=== PATIENT | male | born 1940 | race Caucasian/White ===

== ENCOUNTER 2024-01-18 10:16 | Inpatient (IN) | payer OTHER, MEDICARE ==
[2024-01-18 10:58] VITALS: BMI 21.5
[2024-01-18 11:32] LABS: HEMATOCRIT 25.8 % (35.4-49); HEMOGLOBIN 8.4 GM/dL (11.7-16.9); MCH 33.3 pg (25.7-33.7); MCHC 32.7 g/dl (32.0-35.9); MEAN PLT VOLUME 7.5 fl (7.5-11.1); PLATELET COUNT 398 10^3/uL (134-434); RBC 2.53 M/mm3 (4.00-5.60); RDW 19.7 % (11.9-15.9); WHITE BLOOD COUNT 17.7 K/mm3 (4.0-10.0)
[2024-01-18 11:51] LABS: CALCIUM 8.6 mg/dL (8.5-10.1)
[2024-01-18 11:52] LABS: ALBUMIN 3.6 g/dl (3.4-5.0); BLOOD UREA NITROGEN 15.6 mg/dL (7-18); MAGNESIUM 2.3 mg/dL (1.8-2.4)
[2024-01-18 11:55] LABS: CREATININE 1.2 mg/dL (0.55-1.3)
[2024-01-18 11:57] LABS: BILIRUBIN,TOTAL 0.8 mg/dL (0.2-1); TOT PROT 6.6 g/dl (6.4-8.2)
[2024-01-18 13:56] LABS: EPI CELLS 24 /uL (0-25.1); HYALINE CASTS 2 /uL (0-3.1); URINE APPEARANCE CLOUDY; URINE BACTERIA 34 /uL (0-1359); URINE BILIRUBIN NEGATIVE (NEGATIVE); URINE COLOR YELLOW; URINE GLUCOSE (UA) NEGATIVE (NEGATIVE); URINE KETONE NEGATIVE (NEGATIVE); URINE LEUK ESTERASE NEGATIVE (NEGATIVE); URINE NITRITE NEGATIVE (NEGATIVE); URINE PROTEIN 1+ (NEGATIVE); URINE RBC 11 /uL (0-23.9); URINE UROBILINOGEN 0.2 mg/dL (0.2-1.0); URINE WBC 26 /uL (0-25.8)
[2024-01-18 14:46] LABS: URINE CRYSTALS FEW AMORPHOUS URATES /hpf
[2024-01-18] MEDS: REMDESIVIR 200 MG in SODIUM CHLORIDE 250 ML IVPB ONE ×2 (17:27→18:26)
[2024-01-18] MEDS: REMDESIVIR 100 MG in SODIUM CHLORIDE 250 ML IVPB SCH (18:26)
[2024-01-18] MEDS ORDERED: DEXAMETHASONE SOD PHOSPHATE 10 MG/1 ML VIAL ONE (22:33)
[2024-01-18] MEDS: ATORVASTATIN CA 10 MG TABLET (FP) PO SCH (22:39)
[2024-01-18] MEDS: DEXAMETHASONE SOD PHOSPHATE 4 MG/1 ML VIAL IVPUSH ONE (22:39)
[2024-01-18] MEDS: DEXAMETHASONE SOD PHOSPHATE 10 MG/1 ML VIAL IVPUSH ONE (23:24)
[2024-01-18] MEDS ORDERED: POLYETHYLENE GLYCOL (HEALTHYLAX) 3350 17 GM PACKET PO PRN (23:29)
[2024-01-18] MEDS ORDERED: ACETAMINOPHEN 325 MG TABLET (FP) PO PRN (23:29)
[2024-01-19 06:17] LABS: HEMATOCRIT 25.8 % (35.4-49); HEMOGLOBIN 8.5 GM/dL (11.7-16.9); MCH 33.6 pg (25.7-33.7); MEAN PLT VOLUME 7.7 fl (7.5-11.1); PLATELET COUNT 423 10^3/uL (134-434); RBC 2.52 M/mm3 (4.00-5.60); RDW 19.8 % (11.9-15.9); WHITE BLOOD COUNT 19.8 K/mm3 (4.0-10.0)
[2024-01-19 06:33] LABS: POTASSIUM 4.4 mmol/L (3.5-5.1)
[2024-01-19 06:35] LABS: CALCIUM 8.9 mg/dL (8.5-10.1)
[2024-01-19 06:36] LABS: ALBUMIN 3.8 g/dl (3.4-5.0); BLOOD UREA NITROGEN 14.3 mg/dL (7-18); MAGNESIUM 2.3 mg/dL (1.8-2.4)
[2024-01-19 06:38] LABS: INR 1.2 (0.83-1.09); PROTHROMBIN TIME (PATIENT) 13.7 SEC (9.7-13.0)
[2024-01-19 06:39] LABS: CREATININE 1.1 mg/dL (0.55-1.3); PHOSPHOROUS 3.6 mg/dL (2.5-4.9)
[2024-01-19 06:40] LABS: BILIRUBIN,TOTAL 0.8 mg/dL (0.2-1); TOT PROT 6.6 g/dl (6.4-8.2)
[2024-01-19 06:41] LABS: ACTIVATED PTT 35.8 SECONDS (25.2-36.5)
[2024-01-19 07:04] VITALS: RESP 18
[2024-01-19] MEDS ORDERED: PATIENT'S OWN MEDICATION (NON-FORMULARY) (Ruxolitinib Phosphate [Jakafi] 5 MG Tablet) PO SCH (10:00)
[2024-01-19] MEDS: POTASSIUM CHLORIDE TABS 10 MEQ TABLET.ER (FP) PO SCH (10:00)
[2024-01-19 10:29] LABS: ANISOCYTOSIS 2+; MACROCYTOSIS 0; TEAR DROP CELLS 1+
[2024-01-19 10:30] LABS: PLATELET ESTIMATE ADEQUATE
[2024-01-19] MEDS: REMDESIVIR 100 MG in SODIUM CHLORIDE 250 ML IVPB SCH (10:55)
[2024-01-19] MEDS: EZETIMIBE 10 MG TABLET (FP) PO SCH (11:10)
[2024-01-19] MEDS ORDERED: DEXAMETHASONE SOD PHOSPHATE 10 MG/1 ML VIAL ONE (12:47)
[2024-01-19] MEDS: DEXAMETHASONE SOD PHOSPHATE 10 MG/1 ML VIAL IVPUSH SCH (12:59)
[2024-01-19] MEDS: ASPIRIN 81 MG CHEWABLE TABLETS PO SCH (12:59)
[2024-01-19] MEDS: TAMSULOSIN HCL 0.4 MG CAP PO SCH (12:59)
[2024-01-19] MEDS: PANTOPRAZOLE SODIUM 40 MG VIAL IVPUSH SCH (12:59)
[2024-01-19] MEDS: metoPROLOL SUCCINATE 25 MG TAB.SR.24H (FP) PO SCH (13:00)
[2024-01-19 14:43] VITALS: TEMP 97.6
[2024-01-19] MEDS ORDERED: MELATONIN 5 MG TABLETS ONE (22:23)
[2024-01-19] MEDS ORDERED: ATORVASTATIN CA 10 MG TABLET (FP) ONE (22:23)
[2024-01-19] MEDS ORDERED: POTASSIUM CHLORIDE TABS 10 MEQ TABLET.ER (FP) ONE (22:23)
[2024-01-19] MEDS: MELATONIN 1 MG TABLET PO SCH (22:26)
[2024-01-19 23:50] VITALS: BP 142/67; PULSE 74
== END 2024-01-19 23:36 | DRG 179 ==
LOC: JER 10:16 → JERBED 15:51 → OBSVTOIN 01-19 08:13
PROVIDERS: ADMIT Internal Medicine; ATTEND Internal Medicine
PROC: XW033E5 Introduction of Remdesivir Anti-infective into Peripheral Vein, Percutaneous Approach, New Technology Group 5 (ICD-10-PCS; principal; 2024-01-19)
DX: U07.1 COVID-19 (principal); I10 Essential (primary) hypertension; G93.89 Other specified disorders of brain; E78.5 Hyperlipidemia, unspecified; D72.829 Elevated white blood cell count, unspecified; N40.0 Benign prostatic hyperplasia without lower urinary tract symptoms; R09.02 Hypoxemia; D75.9 Disease of blood and blood-forming organs, unspecified; S01.112A Laceration without foreign body of left eyelid and periocular area, initial encounter; W19.XXXA Unspecified fall, initial encounter; Y93.9 Activity, unspecified; Y92.89 Other specified places as the place of occurrence of the external cause; Y99.9 Unspecified external cause status
CPT/HCPCS: 0241U-QW; 36415; 70450-TC; 71045-TC-FY; 72125-TC; 80053; 81003; 82607; 82728; 83540; 83550; 83735; 84100; 85025; 85027; 85610; 85730; 86140; 87086; 87186; 93005; 93010; 99285-25; G0378; J0248; J1100